=== PATIENT | female | born 1955 | race Caucasian/White ===

== ENCOUNTER → 2025-05-15 13:38 | Outpatient (CLI) | payer OTHER, SELFPAY ==
--- NOTE | 2025-05-15 13:39 | DI.MRI.S_ITS ---
PROCEDURE: MR KNEE LT WO CON INDICATIONS: LT KNEE PAIN TECHNIQUE: Noncontrast sagittal PD fast spin echo and T2 fast spin echo with fat saturation, sagittal 3-D FLASH with fat saturation; coronal T1 spin echo and PD fast spin echo with fat saturation, and axial PD fast spin echo with fat saturation through the knee. COMPARISON: [facility], CR, ORTHO-XR KNEE WB LEFT, 05/09/2025, 8:13. FINDINGS: Quality: Adequate Menisci: Medial meniscus: Posterior root tear of medial meniscus. Additional tearing of the anterior horn. Lateral meniscus: Intact Cruciate ligaments: Anterior cruciate ligament: Intact Posterior cruciate ligament: Intact Collateral ligaments: Medial collateral ligament: Intact Lateral collateral ligament complex: Intact Extensor mechanism: Quadriceps tendon: Intact Patellar tendon: Intact Retinaculum: Intact Fat pads: Unremarkable Cartilage: Broad area of full-thickness cartilage loss along the central weight-bearing portion of the medial femoral condyle and medial patellar facet. Tiny marginal osteophytes in the medial compartment Bones: Tiny subchondral fracture of the medial tibial condyle with associated marrow edema. Fluid spaces: Joint: Physiologic fluid. Popliteal cyst: None Other: None IMPRESSION: Subchondral fracture medial tibial plateau. Posterior root tear of medial meniscus. Severe osteoarthritis. Dictated by: Santos Velez M.D. on 05/15/2025 at 14:53 Approved by: Santos Velez M.D. on 05/15/2025 at 15:02
== END ==
LOC: MRI 13:39
PROVIDERS: PCP Family Medicine; Referring Provider Orthopaedic Surgery; Visit Provider Orthopaedic Surgery
DX: S83.242A Other tear of medial meniscus, current injury, left knee, initial encounter (principal); M17.12 Unilateral primary osteoarthritis, left knee; M71.22 Synovial cyst of popliteal space [Baker], left knee; M25.562 Pain in left knee
CPT/HCPCS: 73721